=== PATIENT | male | born 2000 | race Caucasian/White ===

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

== ENCOUNTER 2021-03-11 16:00 | Inpatient (IN) | payer MEDICAID, SELFPAY ==
[2021-03-11 16:04] VITALS: BP 168/100; PULSE 114; RESP 18; TEMP 37.1; O2SAT 94; BMI 42.7
--- NOTE | 2021-03-11 17:03 | W.ED.PSYCHS ---
Documented by User: Justo Hebert DO 03/19/21 08:32 HPI - Psych General: Chief Complaint: Psychiatric Symptoms Stated Complaint: SI Time Seen by Provider: 03/11/21 16:23 History of Present Illness: HPI Narrative: 21-year-old male lives at an [facility].. Patient relates having depression and suicidal thoughts he tried to strangle himself using a basketball hoop earlier today. He has been sleeping most of the time eating and isolating himself according to the staff members here with him. He has been admitted for same in the past. MD complaint: suicidal ideation Onset (ago): minute(s) Duration: constant History of same: Yes Relieving factors: none Exacerbating factors: none Associated psychiatric symptoms: none Associated symptoms: Reports no associated symptoms Treatments prior to arrival: none If self harm: admits thoughts of self harm, has plan, has acted on plan and self-inflicted trauma Details of plan: Patient attempted to strangle himself with a basketball hoop Review of Systems Const: Denies: fever(s), chills, body aches, change in appetite, fatigue or malaise ENMT: Denies: throat pain, ear or mastoid pain, nasal discharge or nasal congestion Card: Denies: chest pain, edema, dyspnea on exertion or orthopnea Resp: Denies: dyspnea, productive cough or non-productive cough GI: Denies: abdominal pain, nausea, vomiting, hematemesis, coffee ground emesis, diarrhea, constipation, bloating, hematochezia or melena : Denies: flank pain, dysuria, urinary frequency or urinary urgency Skin/Breast: Denies: rash or pruritus PFSH ED PFSH: Medical History ADHD Anxiety and depression Autism Enuresis Hypothyroid Obesity, Class II, BMI 35-39.9 OCD (obsessive compulsive disorder) Pre-diabetes Seasonal allergic rhinitis Surgical History No history of previous surgery Family History Mother Seizure Social History Smoking and tobacco status: never smoked Second hand smoke exposure: No Smoking risk assessment/counseling performed?: No Alcohol intake: never Desire information about alcohol rehabilitation?: No Counseling given: No Desire information about substance/drug rehabilitation?: No Counseling given: No Adopted: No Caregiver/support person: Yes Lives independently: No Housing: Apartment Marital status: Single Number of children: 0 Highest education level completed: High School Graduate service: No Current occupational status: disabled Pets and animals: No History of recent travel: No Current gender identity: Male Special amor needs: No Physical Exam Const: COMMON NORMALS: no acute distress GENERAL APPEARANCE: cooperative and comfortable ORIENTATION/CONSCIOUSNESS: Yes awake, Yes oriented to person, Yes oriented to place and Yes oriented to time HENMT: COMMON NORMALS: normocephalic, atraumatic and hearing grossly normal bilaterally HEAD & SCALP: normocephalic and atraumatic Neck/C-Spine: COMMON NORMALS: no JVD Resp: COMMON NORMALS: normal respiratory effort, No retractions, No use of accessory muscles and clear to auscultation bilaterally AUSCULTATION: clear to auscultation bilaterally Cardio: COMMON NORMALS: no JVD, regular rate, regular rhythm and No murmurs present (Cardio) RATE: regular rate RHYTHM: regular rhythm GI: COMMON NORMALS: Soft to palpation and No hepatosplenomegaly present AUSCULTATION: Yes normoactive bowel sounds PALPATION: Yes Soft to palpation, No Tenderness to palpation present (GI), No Guarding due to palpation present (GI) and Yes No hepatosplenomegaly present Extremity: COMMON NORMALS: normal to inspection, capillary refill normal, no clubbing, cyanosis or edema, no calf tenderness and no pedal edema Neuro: SENSORIUM/ORIENTATION: Yes oriented to person, Yes oriented to place and Yes oriented to time Skin: COMMON NORMALS: no rashes or lesions noted GENERAL SKIN EXAM: no rashes or lesions noted Course Vital Signs: Vital signs: Vital Signs Temperature 98.3 F 03/16/21 13:40 Pulse Rate 78 03/16/21 13:40 Respiratory Rate 16 03/16/21 13:40 Blood Pressure 132/78 03/16/21 13:40 Pulse Oximetry 99 03/16/21 13:40 MDM - Psych MDM Narrative: Medical decision making narrative: Care turned over Dr. Junior see his note from diagnosis and disposition. Lab Data: Labs: Lab Results 03/11/21 03/11/21 03/11/21 18:28 18:28 18:28 WBC 12.0 10^3/uL 10^3 /uL (4.5-13.0) RBC 5.56 10^6/uL H 10 ^6/uL (4.1-5.3) Hgb 15.4 g/dL g/dL (11.7-16.6) Hct 46.2 % % (42.0-52.0) MCV 83.1 fl fl (80-94) MCH 27.7 pg L pg (28.0-34.0) MCHC 33.3 g/dL g/dL (30.0-36.0) RDW 12.3 % % (12.1-15.1) Plt Count 259 10^3/cmm 10^3 /cmm (130-400) MPV 10.8 fL H fL (7.4-10.4) Neut % (Auto) 71.4 % % Lymph % (Auto) 18.9 % % [place] % (Auto) 6.3 % % Eos % (Auto) 2.2 % % Baso % (Auto) 0.7 % % Neut # (Auto) 8.55 10^3/uL H 10 ^3/uL (1.8-8.0) Lymph # (Auto) 2.3 10^3/uL 10^3/ uL (1.5-6.5) [place] # (Auto) 0.8 10^3/uL 10^3/ uL (0.2-0.9) Eos # (Auto) 0.3 10^3/uL 10^3/ uL (0.0-0.8) Baso # (Auto) 0.1 10^3/uL 10^3/ uL (0.0-0.1) Nucleated RBC % (a uto) 0 % % Nucleated RBCs # 0.0 /100WBC /100W BC Sodium 136 mmol/L mmol/L (136-145) Potassium 4.2 mmol/L mmol/L (3.5-5.1) Chloride 98 mmol/L mmol/L (98-107) Carbon Dioxide 23 mmol/L mmol/L (22-29) Anion Gap 19.2 H (5-19) BUN 13 mg/dL mg/dL (6-20) Creatinine 0.9 mg/dL mg/dL (0.7-1.2) GFR Calculation 107.6 mL/min mL/m in (90-130) Glucose 117 mg/dL H mg/dL (65-115) Calculated Osmolal ity 283 mOsm/kg L mOs m/kg (285-295) Calcium 9.3 mg/dL mg/dL (8.5-10.5) Total Bilirubin 0.2 mg/dL mg/dL (0.15-1.2) AST 19 U/L U/L (0-40) ALT 19 U/L U/L (0-41) Alkaline Phosphata se 75 IU/L IU/L (40-130) Total Protein 8.2 g/dL g/dL (6.6-8.7) Albumin 4.8 g/dL g/dL (3.5-5.2) Globulin 3.4 g/dL g/dL (1.3-4.6) TSH 7.06 uIU/mL H uIU /mL (0.27-4.20) Salicylates < 0.3 mg/dL L mg/ dL (3-10) Urine Opiates Scre en Acetaminophen < 5.0 ug/mL L ug/ mL (10-30) Ur Barbiturates Sc reen Ur Phencyclidine S crn Ur Amphetamines Sc reen U Benzodiazepines Scrn Urine Cocaine Scre en U Marijuana (THC) Screen 03/11/21 18:38 WBC RBC Hgb Hct MCV MCH MCHC RDW Plt Count MPV Neut % (Auto) Lymph % (Auto) [place] % (Auto) Eos % (Auto) Baso % (Auto) Neut # (Auto) Lymph # (Auto) [place] # (Auto) Eos # (Auto) Baso # (Auto) Nucleated RBC % (a uto) Nucleated RBCs # Sodium Potassium Chloride Carbon Dioxide Anion Gap BUN Creatinine GFR Calculation Glucose Calculated Osmolal ity Calcium Total Bilirubin AST ALT Alkaline Phosphata se Total Protein Albumin Globulin TSH Salicylates Urine Opiates Scre en Negative ng/mL ng /mL (Negative) Acetaminophen Ur Barbiturates Sc reen Negative ng/mL ng /mL (Negative) Ur Phencyclidine S crn Negative ng/mL ng /mL (Negative) Ur Amphetamines Sc reen Negative ng/mL ng /mL (Negative) U Benzodiazepines Scrn Negative ng/mL ng /mL (Negative) Urine Cocaine Scre en Negative ng/mL ng /mL (Negative) U Marijuana (THC) Screen Negative ng/mL ng /mL (Negative) Discharge Plan Discharge Patient Disposition: Admitted As Inpatient Admit Provider: Fransico Pennington Clinical Impression: Suicidal ideation Condition: Stable Discharge Diet: Regular Discharge Activity: Resume usual activity Coding Level of Care Code ED 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 [employer] Fwd Exam Comprehensive Documented by User: Leatha Junior MD 03/11/21 19:17 HPI - Psych General: Chief Complaint: Psychiatric Symptoms Stated Complaint: SI Time Seen by Provider: 03/11/21 16:23 PFSH ED PFSH: Medical History ADHD Anxiety and depression Autism Enuresis Hypothyroid Obesity, Class II, BMI 35-39.9 OCD (obsessive compulsive disorder) Pre-diabetes Seasonal allergic rhinitis Surgical History No history of previous surgery Family History Mother Seizure Social History Smoking and tobacco status: never smoked Second hand smoke exposure: No Smoking risk assessment/counseling performed?: No Alcohol intake: never Desire information about alcohol rehabilitation?: No Counseling given: No Desire information about substance/drug rehabilitation?: No Counseling given: No Adopted: No Caregiver/support person: Yes Lives independently: No Housing: Apartment Marital status: Single Number of children: 0 Highest education level completed: High School Graduate service: No Current occupational status: disabled Pets and animals: No History of recent travel: No Current gender identity: Male Special amor needs: No Course Vital Signs: Vital signs: Vital Signs Temperature 98.3 F 03/16/21 13:40 Pulse Rate 78 03/16/21 13:40 Respiratory Rate 16 03/16/21 13:40 Blood Pressure 132/78 03/16/21 13:40 Pulse Oximetry 99 03/16/21 13:40 MDM - Psych MDM Narrative: Medical decision making narrative: Patient presents after a suicide attempt I took over from Dr. Hinton following labs he looked normal he is medically cleared I spoke to the psychiatrist and will admit the psychiatric unit. Lab Data: Labs: Lab Results 03/11/21 03/11/21 03/11/21 18:28 18:28 18:28 WBC 12.0 10^3/uL 10^3 /uL (4.5-13.0) RBC 5.56 10^6/uL H 10 ^6/uL (4.1-5.3) Hgb 15.4 g/dL g/dL (11.7-16.6) Hct 46.2 % % (42.0-52.0) MCV 83.1 fl fl (80-94) MCH 27.7 pg L pg (28.0-34.0) MCHC 33.3 g/dL g/dL (30.0-36.0) RDW 12.3 % % (12.1-15.1) Plt Count 259 10^3/cmm 10^3 /cmm (130-400) MPV 10.8 fL H fL (7.4-10.4) Neut % (Auto) 71.4 % % Lymph % (Auto) 18.9 % % [place] % (Auto) 6.3 % % Eos % (Auto) 2.2 % % Baso % (Auto) 0.7 % % Neut # (Auto) 8.55 10^3/uL H 10 ^3/uL (1.8-8.0) Lymph # (Auto) 2.3 10^3/uL 10^3/ uL (1.5-6.5) [place] # (Auto) 0.8 10^3/uL 10^3/ uL (0.2-0.9) Eos # (Auto) 0.3 10^3/uL 10^3/ uL (0.0-0.8) Baso # (Auto) 0.1 10^3/uL 10^3/ uL (0.0-0.1) Nucleated RBC % (a uto) 0 % % Nucleated RBCs # 0.0 /100WBC /100W BC Sodium 136 mmol/L mmol/L (136-145) Potassium 4.2 mmol/L mmol/L (3.5-5.1) Chloride 98 mmol/L mmol/L (98-107) Carbon Dioxide 23 mmol/L mmol/L (22-29) Anion Gap 19.2 H (5-19) BUN 13 mg/dL mg/dL (6-20) Creatinine 0.9 mg/dL mg/dL (0.7-1.2) GFR Calculation 107.6 mL/min mL/m in (90-130) Glucose 117 mg/dL H mg/dL (65-115) Calculated Osmolal ity 283 mOsm/kg L mOs m/kg (285-295) Calcium 9.3 mg/dL mg/dL (8.5-10.5) Total Bilirubin 0.2 mg/dL mg/dL (0.15-1.2) AST 19 U/L U/L (0-40) ALT 19 U/L U/L (0-41) Alkaline Phosphata se 75 IU/L IU/L (40-130) Total Protein 8.2 g/dL g/dL (6.6-8.7) Albumin 4.8 g/dL g/dL (3.5-5.2) Globulin 3.4 g/dL g/dL (1.3-4.6) TSH 7.06 uIU/mL H uIU /mL (0.27-4.20) Salicylates < 0.3 mg/dL L mg/ dL (3-10) Urine Opiates Scre en Acetaminophen < 5.0 ug/mL L ug/ mL (10-30) Ur Barbiturates Sc reen Ur Phencyclidine S crn Ur Amphetamines Sc reen U Benzodiazepines Scrn Urine Cocaine Scre en U Marijuana (THC) Screen 03/11/21 18:38 WBC RBC Hgb Hct MCV MCH MCHC RDW Plt Count MPV Neut % (Auto) Lymph % (Auto) [place] % (Auto) Eos % (Auto) Baso % (Auto) Neut # (Auto) Lymph # (Auto) [place] # (Auto) Eos # (Auto) Baso # (Auto) Nucleated RBC % (a uto) Nucleated RBCs # Sodium Potassium Chloride Carbon Dioxide Anion Gap BUN Creatinine GFR Calculation Glucose Calculated Osmolal ity Calcium Total Bilirubin AST ALT Alkaline Phosphata se Total Protein Albumin Globulin TSH Salicylates Urine Opiates Scre en Negative ng/mL ng /mL (Negative) Acetaminophen Ur Barbiturates Sc reen Negative ng/mL ng /mL (Negative) Ur Phencyclidine S crn Negative ng/mL ng /mL (Negative) Ur Amphetamines Sc reen Negative ng/mL ng /mL (Negative) U Benzodiazepines Scrn Negative ng/mL ng /mL (Negative) Urine Cocaine Scre en Negative ng/mL ng /mL (Negative) U Marijuana (THC) Screen Negative ng/mL ng /mL (Negative) Discharge Plan Discharge Patient Disposition: Admitted As Inpatient Admit Provider: Fransico Pennington Clinical Impression: Suicidal ideation Condition: Stable Discharge Diet: Regular Discharge Activity: Resume usual activity Coding Level of Care Code ED 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
[2021-03-11 18:34] LABS: Basophils # 0.1 10^3/uL (0.0-0.1); Basophils % 0.7 %; Eosinophils # 0.3 10^3/uL (0.0-0.8); Eosinophils % 2.2 %; Hematocrit 46.2 % (42.0-52.0); Hemoglobin 15.4 g/dL (11.7-16.6); Lymphocytes # 2.3 10^3/uL (1.5-6.5); Lymphocytes % 18.9 %; Mean Corpuscular HGB Conc 33.3 g/dL (30.0-36.0); Mean Corpuscular Hemoglobin 27.7 pg (28.0-34.0); Mean Corpuscular Volume 83.1 fl (80-94); Mean Platelet Volume 10.8 fL (7.4-10.4); Monocytes # 0.8 10^3/uL (0.2-0.9); Monocytes % 6.3 %; Neutrophils # 8.55 10^3/uL (1.8-8.0); Neutrophils % 71.4 %; Nucleated Red Blood Cells % 0 %; Platelet Count 259 10^3/cmm (130-400); Red Blood Count 5.56 10^6/uL (4.1-5.3); Red Cell Distribution Width 12.3 % (12.1-15.1)
[2021-03-11 18:53] LABS: Alanine Aminotransferase 19 U/L (0-41); Albumin Level 4.8 g/dL (3.5-5.2); Alkaline Phosphatase 75 IU/L (40-130); Anion Gap 19.2 (5-19); Aspartate Amino Transferase 19 U/L (0-40); Blood Urea Nitrogen 13 mg/dL (6-20); Calcium 9.3 mg/dL (8.5-10.5); Carbon Dioxide 23 mmol/L (22-29); Chloride 98 mmol/L (98-107); Globulin 3.4 g/dL (1.3-4.6); Glomerular Filtration Rate 107.6 mL/min (90-130); Glucose 117 mg/dL (65-115); Osmolality Calculated 283 mOsm/kg (285-295); Potassium 4.2 mmol/L (3.5-5.1); Sodium 136 mmol/L (136-145); Total Bilirubin 0.2 mg/dL (0.15-1.2); Total Protein 8.2 g/dL (6.6-8.7)
[2021-03-11 18:57] LABS: Acetaminophen < 5.0 ug/mL (10-30); Salicylate < 0.3 mg/dL (3-10)
[2021-03-11] MEDS: risperiDONE 2 mg Tablet 6 MG PO (19:59)
[2021-03-11] MEDS: PARoxetine 20 mg Tablet PO (19:59)
[2021-03-11] MEDS: polyethylene glycol 3350 Pkt 17 gm PO (20:06)
[2021-03-11 21:04] VITALS: BP 149/74; PULSE 101; RESP 18; TEMP 37.1; O2SAT 96
[2021-03-11 21:14] LABS: Amphetamines Screen Urine Negative (Negative); Barbiturates Screen Urine Negative (Negative); Benzodiazepines Screen Urine Negative (Negative); Cocaine Screen Urine Negative (Negative); Opiate Screen Urine Negative (Negative); PCP Screen Urine Negative (Negative); THC Screen Urine Negative (Negative)
[2021-03-11 21:16] VITALS: BP 149/74; PULSE 78; RESP 18; TEMP 37.1; O2SAT 96
[2021-03-11 21:21] VITALS: BP 146/80; PULSE 90; RESP 18; O2SAT 98
[2021-03-11 22:00] VITALS: BP 146/80; PULSE 90; RESP 18; TEMP 37.1
[2021-03-12 06:00] VITALS: BP 140/83; PULSE 76; RESP 18; O2SAT 96
--- NOTE | 2021-03-12 06:30 | P.NPUHP_ITS ---
Providers/Chief Complaint Admitting Physician: Fransico Pennington MD Primary Care Provider: JA Ferro Chief Complaint: SI HPI NPU History of Present Illness Nick Sanders is a 21 year old male who presented to the emergency room after a suicide attempt with the following report: HPI - Psych General: Chief Complaint: Psychiatric Symptoms Stated Complaint: SI Time Seen by Provider: 03/11/21 16:23 History of Present Illness: HPI Narrative: 21-year-old male lives at an [facility].. Patient relates having depression and suicidal thoughts he tried to strangle himself using a basketball hoop earlier today. He has been sleeping most of the time eating and isolating himself according to the staff members here with him. He has been admitted for same in the past. complaint: suicidal ideation Onset (ago): minute(s) Duration: constant History of same: Yes Relieving factors: none Exacerbating factors: none Associated psychiatric symptoms: none Associated symptoms: Reports no associated symptoms Treatments prior to arrival: none If self harm: admits thoughts of self harm, has plan, has acted on plan and self-inflicted trauma Details of plan: Patient attempted to strangle himself with a basketball hoop Prescriptions: No Action paroxetine HCl 40 mg tablet 40 mg PO BID RF: 0 naltrexone 50 mg tablet 50 mg PO DAILY RF: 0 melatonin [Melatin] 3 mg tablet 3 mg PO DAILY RF: 0 ibuprofen 600 mg tablet 600 mg PO Q6H PRN (Reason: pain) Qty: 90 RF: 5 acetaminophen 325 mg tablet 325 mg PO Q6H PRN (Reason: fever over 100 or pain) Qty: 30 RF: 5 cetirizine 10 mg tablet 10 mg PO DAILY Qty: 30 RF: 5 polyethylene glycol 3350 [Miralax] 17 gram/dose powder 17 g PO DAILY Qty: 510 RF: 2 risperidone 3 mg tablet 3 mg PO .AM RF: 0 risperidone 3 mg tablet 3 mg PO BID RF: 0 levothyroxine 25 mcg tablet 25 mcg PO DAILY Qty: 30 RF: 5 guanfacine 4 mg tablet extended release 24 hr 4 mg PO DAILY Qty: 30 RF: 2 atomoxetine 80 mg capsule 80 mg PO DAILY Qty: 30 RF: 2 desmopressin 0.2 mg tablet 0.2 mg PO .at bedtime Qty: 30 RF: 2 PFSH ED PFSH: Medical History ADHD Anxiety and depression Autism Enuresis Hypothyroid Obesity, Class II, BMI 35-39.9 OCD (obsessive compulsive disorder) Pre-diabetes Seasonal allergic rhinitis He was admitted to the neuropsychiatry unit for definitive treatment of these issues. He says that he has been down for the last few months. He said he went and was with family at [facility] and did well. He saw his psychiatrist about 2 or 3 weeks ago and was doing relatively well. He decreased his risperidone from 1.5 in the morning and 6 mg at bedtime to only 6 mg at bedtime. That because he was tired during the day. It seems that he has been worse since that time. He does feel a little bit less tired during the day but he still has poor motivation and energy and just lays on the bed or couch all day long. He tried to hang himself with a basketball hoop in the last couple of days. He also has been having thoughts of running into traffic on a walk that he had yesterday. He says that he has been on these medications for some time. His guardian says that he has been stable on these medications for about 1.5 years and has been doing well. She is hoping that this is just a temporary thing. He spent some time with family at [facility] but will be alone at [place] and she thinks that might be causing him to be more down. Did agree with the lithium although she had some concerns. She also agreed with the increase in risperidone to 7.5 mg daily. He has been in state custody since he was 6 years old. His mother could not handle her 5 children on her own. His father left when he was 2-year-old. He has had the same guardian for the last 6 years. His mother is in [place] now. She a tod who is in trouble with the law in [place]. He says that he was diagnosed as prediabetes a few years ago. He said that his weight has been stable since then but he has gotten taller so he is less obese. He says that he does have some obsessive- compulsive symptoms. Sometimes if he is something out of place he has to fix it. He does count things sometimes. He does not have rituals that he has to go through. Meds NPU Home Medications Medication Instructions Recorded Confirmed Last Taken Type naltrexone 50 mg tablet 50 mg PO DAILY 12/13/19 03/11/21 Unknown History paroxetine HCl 40 mg tablet 40 mg PO BID tab 12/13/19 03/11/21 Unknown History atomoxetine 80 mg capsule 80 mg PO DAILY #30 cap 01/10/20 03/11/21 Unknown Rx guanfacine 4 mg tablet,extended 4 mg PO DAILY #30 tab 01/10/20 03/11/21 Unknown Rx release 24 hr risperidone 3 mg tablet 6 mg PO BEDTIME tab 06/11/20 03/11/21 Unknown History levothyroxine 25 mcg tablet 25 mcg PO DAILY #30 tab 06/15/20 03/11/21 Unknown Rx acetaminophen 325 mg tablet 325 mg PO Q6H PRN #30 tab 08/12/20 03/11/21 Unknown Rx cetirizine 10 mg tablet 10 mg PO DAILY #30 tab 08/12/20 03/11/21 Unknown Rx ibuprofen 600 mg tablet 600 mg PO Q6H PRN #90 tab 08/12/20 03/11/21 Unknown Rx melatonin 3 mg tablet 3 mg PO DAILY 08/12/20 03/11/21 Unknown History polyethylene glycol 3350 17 17 g PO DAILY #510 g 10/17/20 03/11/21 Unknown Rx gram/dose oral powder desmopressin 0.2 mg tablet 0.2 mg PO .at bedtime #30 tab 12/09/20 03/11/21 Unknown Rx Allergies Allergy/AdvReac Type Severity Reaction Status Date / Time No Known Allergies Allergy Unverified 12/13/19 11:01 PFS NPU PFSH: Medical History ADHD Anxiety and depression Autism Enuresis Hypothyroid Obesity, Class II, BMI 35-39.9 OCD (obsessive compulsive disorder) Pre-diabetes Seasonal allergic rhinitis Surgical History No history of previous surgery Family History Mother Seizure Social History Smoking and tobacco status: never smoked Second hand smoke exposure: No Smoking risk assessment/counseling performed?: No Alcohol intake: never Desire information about alcohol rehabilitation?: No Counseling given: No Desire information about substance/drug rehabilitation?: No Counseling given: No Adopted: No Caregiver/support person: Yes Lives independently: No Housing: Apartment Marital status: Single Number of children: 0 Highest education level completed: High School Graduate service: No Current occupational status: disabled Pets and animals: No History of recent travel: No Current gender identity: Male Special amor needs: No Mental Status Exam MSE Comments: This is an obese male of about the stated age in no acute distress. He is dressed in hospital scrubs and is only fairly groomed. His hair is unkempt. psychomotor activity normal. Speech is at a regular rate and rhythm, normal volume, good articulation, not pressured. Alert, oriented X3 Attention and concentration appear to be normal. Memory is intact Mood is depressed. Affect is is very mildly dysphoric. Thought process is logical and goal-directed. Thought content: Denies auditory and visual hallucinations. No delusions or pa ranoia are noted. No current suicidal ideation, and no homicidal ideation. Fund of knowledge is limited. Insight and judgment appear to be fairly good. Impulse control is impaired as indicated by attempting to hang himself yesterday. Vitals/I&O/Wt Last Vital Signs Temp 98.7 F 03/11/21 22:00 Pulse 76 03/12/21 06:00 Resp 18 03/12/21 06:00 BP 140/83 03/12/21 06:00 Pulse Ox 96 03/12/21 06:00 Weight last 48 hrs Weight 142.882 kg Data NPU : 03/11/21 18:28 03/11/21 18:28 A&P Assessment and plan (1) Autism: Status: Chronic (2) OCD (obsessive compulsive disorder): Status: Chronic Qualifiers: Obsessive-compulsive disorder type: mixed obsessional thoughts and acts Qualified Code(s): F42.2 - Mixed obsessional thoughts and acts (3) Hypothyroid: Status: Chronic Qualifiers: Hypothyroidism type: unspecified Qualified Code(s): E03.9 - Hypothyroidism, unspecified (4) Pre-diabetes: Status: Chronic (5) Seasonal allergic rhinitis: Status: Chronic Qualifiers: Allergic rhinitis trigger: unspecified Qualified Code(s): J30.2 - Other seasonal allergic rhinitis (6) ADHD: Status: Chronic Qualifiers: Attention deficit-hyperactivity disorder type: unspecified Qualified Code(s): F90.9 - Attention-deficit hyperactivity disorder, unspecified type (7) Enuresis: Status: Chronic (8) Slow transit constipation: Status: Chronic (9) Obesity, Class II, BMI 35-39.9: Status: Chronic (10) Suicidal ideation: Status: Acute (11) Depression: Status: Acute Qualifiers: Depression Type: major depressive disorder Major depression recurrence: recurrent Active/Remission status: currently active Major depression episode severity: severe Psychotic features: without psychotic features Qualified Code(s): F33.2 - Major depressive disorder, recurrent severe without psychotic features Additional A&P Information Year old male who has relatively frequent suicidal ideations and hospitalizations. He says that he has been more depressed for the last 3 months and has had recent suicidal ideations and an attempt to hang himself with a basketball hoop Plan: 1. Continue current medication. Except increase risperidone to 7.5 mg at bedtime and add lithium carbonate. 2. Continue every 15 minute checks for safety. 3. Encourage individual, group and milieu therapies. 4. Encourage sober living treatment after discharge at the highest level of care to which he is willing to commit. 5. We will monitor for safety for himself in the community prior to discharge. Involuntary Hold Information 96 Hour Hold: 96 Hour Involuntary Admission: No Attestations NPU Medical Necessity Statement*: Inpatient hospitalization is medically necessary and the clinically appropriate intervention at this time. We will initiate medications and make changes as indicated. He will be in the hospital for over 2 midnights. Likely length of stay 4-6 days Coding Level of Care Code Acute Dietary Clerk for [facility] Fwd Diagnoses Autism F84.0 OCD (obsessive compulsive disorder) F42.2 Obsessive-compulsive disorder type: mixed obsessional thoughts and acts Hypothyroid E03.9 Hypothyroidism type: unspecified Pre-diabetes R73.03 Seasonal allergic rhinitis J30.2 Allergic rhinitis trigger: unspecified ADHD F90.9 Attention deficit-hyperactivity disorder type: unspecified Enuresis R32 Slow transit constipation K59.01 Obesity, Class II, BMI 35-39.9 E66.9 Suicidal ideation R45.851 Depression F33.2 Depression Type: major depressive disorder Major depression recurrence: recurrent Active/Remission status: currently active Major depression episode severity: severe Psychotic features: without psychotic features
[2021-03-12] MEDS: atomoxetine 40 mg Capsule 80 MG PO (09:28)
[2021-03-12] MEDS: cetirizine 10 mg Tablet PO (09:28)
[2021-03-12] MEDS: guanfacine 1 mg Tablet 2 MG PO ×2 (09:28→18:15)
[2021-03-12] MEDS: levothyroxine 25 mcg Tablet PO (09:29)
[2021-03-12] MEDS: naltrexone hcl 50 mg Tablet PO (09:29)
[2021-03-12] MEDS: PARoxetine 20 mg Tablet 40 MG PO ×2 (09:29→18:15)
[2021-03-12] MEDS: polyethylene glycol 3350 Pkt 17 gm PO (09:30)
[2021-03-12] MEDS: hyDROXYzine 25 mg Capsule 50 MG PO ×2 (12:44→20:25)
--- NOTE | 2021-03-12 12:57 | NPU.GN ---
[facility] Group Topic:Juan Manuel Activities General Mood of Group: Jesus did attend and participate in group today. His hygiene was poor and he was social with others in group.
[2021-03-12 14:00] VITALS: BP 124/83; PULSE 92; RESP 20; TEMP 36.7; O2SAT 96
[2021-03-12 14:53] LABS: Thyroid Stimulating Hormone 7.06 uIU/mL (0.27-4.20)
[2021-03-12] MEDS: acetaminophen 325 mg Tablet PO (16:55)
[2021-03-12] MEDS: trazodone 50 mg Tablet PO (20:25)
--- NOTE | 2021-03-12 20:25 | PC.NURSE ---
Vistaril 50 mg PO administered for anxiety and Trazadone 50 mg PO administered for sleep aide.
[2021-03-12] MEDS: risperiDONE 2 mg Tablet 6 MG PO (20:26)
[2021-03-12 22:00] VITALS: BP 126/83; PULSE 87; RESP 18; TEMP 36.9; O2SAT 98
[2021-03-13 06:00] VITALS: RESP 17
--- NOTE | 2021-03-13 08:01 | W.PM.NPUPNS ---
Subjective NPU Subjective: Interval history: Found in bed at 7:45 AM. He said that he was very tired. His orders were not put in the last night for the increased Risperdal or lithium. They will be started today. His guardian did give approval for those medications. He continues to feel depressed and has suicidal thoughts periodically. Mental Status Exam MSE Comments: This is an obese male of about the stated age in no acute distress. He is dressed in hospital scrubs and is only fairly groomed. His hair is unkempt. He is in bed and barely awake psychomotor activity but probably normal for trying to sleep. Speech is at a regular rate and rhythm, normal volume, good articulation, not pressured. Alert, oriented X3 Attention and concentration appear to be normal. Memory is intact Mood is depressed. Affect is is very dysphoric. Thought process is logical and goal-directed. Thought content: Denies auditory and visual hallucinations. No delusions or paranoia are noted. No current suicidal ideation, and no homicidal ideation. Fund of knowledge is limited. Insight and judgment appear to be fairly good. Impulse control is impaired as indicated by attempting to hang himself yesterday. Cognition: Patient Appearance: Disheveled/Poor Hygiene Level of Consciousness: Awake and Alert Patient Cognition Impaired: No Ability to Follow Directions: Good Patient Orientation (long list): Person and Name Comprehension Ability: Mild Impairment Hallucination Type: None Delusion Description: Not Present Thought Process: Appropriate Affect: Affect Description: Calm Behavior: Patient Behavior: Cooperative Speech Pattern: Clear Vitals/I&O/Wt Last Vital Signs Temp 98.4 F 03/12/21 22:00 Pulse 87 03/12/21 22:00 Resp 17 03/13/21 06:00 BP 126/83 03/12/21 22:00 Pulse Ox 98 03/12/21 22:00 Weight last 48 hrs Weight 142.882 kg Data NPU : 03/11/21 18:28 03/11/21 18:28 A&P Assessment and plan (1) Autism: Status: Chronic (2) OCD (obsessive compulsive disorder): Status: Chronic Qualifiers: Obsessive-compulsive disorder type: mixed obsessional thoughts and acts Qualified Code(s): F42.2 - Mixed obsessional thoughts and acts (3) Hypothyroid: Status: Chronic Qualifiers: Hypothyroidism type: unspecified Qualified Code(s): E03.9 - Hypothyroidism, unspecified (4) Pre-diabetes: Status: Chronic (5) Seasonal allergic rhinitis: Status: Chronic Qualifiers: Allergic rhinitis trigger: unspecified Qualified Code(s): J30.2 - Other seasonal allergic rhinitis (6) ADHD: Status: Chronic Qualifiers: Attention deficit-hyperactivity disorder type: unspecified Qualified Code(s): F90.9 - Attention-deficit hyperactivity disorder, unspecified type (7) Enuresis: Status: Chronic (8) Slow transit constipation: Status: Chronic (9) Obesity, Class II, BMI 35-39.9: Status: Chronic (10) Suicidal ideation: Status: Acute (11) Depression: Status: Acute Qualifiers: Depression Type: major depressive disorder Major depression recurrence: recurrent Active/Remission status: currently active Major depression episode severity: severe Psychotic features: without psychotic features Qualified Code(s): F33.2 - Major depressive disorder, recurrent severe without psychotic features Additional A&P Information Year old male who has relatively frequent suicidal ideations and hospitalizations. He says that he has been more depressed for the last 3 months and has had recent suicidal ideations and an attempt to hang himself with a basketball hoop Plan: 1. Continue current medication. Except increase risperidone to 7.5 mg at bedtime and add lithium carbonate BID today. 2. Continue every 15 minute checks for safety. 3. Encourage individual, group and milieu therapies. 4. Encourage sober living treatment after discharge at the highest level of care to which he is willing to commit. 5. We will monitor for safety for himself in the community prior to discharge. Involuntary Hold Information 96 Hour Hold: 96 Hour Involuntary Admission: No Attestations U Medical Necessity Statement*: Inpatient hospitalization is medically necessary and the clinically appropriate intervention at this time. We will initiate medications and make changes as indicated. 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 Diagnoses Autism F84.0 OCD (obsessive compulsive disorder) F42.2 Obsessive-compulsive disorder type: mixed obsessional thoughts and acts Hypothyroid E03.9 Hypothyroidism type: unspecified Pre-diabetes R73.03 Seasonal allergic rhinitis J30.2 Allergic rhinitis trigger: unspecified ADHD F90.9 Attention deficit-hyperactivity disorder type: unspecified Enuresis R32 Slow transit constipation K59.01 Obesity, Class II, BMI 35-39.9 E66.9 Suicidal ideation R45.851 Depression F33.2 Depression Type: major depressive disorder Major depression recurrence: recurrent Active/Remission status: currently active Major depression episode severity: severe Psychotic features: without psychotic features
[2021-03-13] MEDS: atomoxetine 40 mg Capsule 80 MG PO (09:20)
[2021-03-13] MEDS: PARoxetine 20 mg Tablet 40 MG PO ×2 (09:21→17:49)
[2021-03-13] MEDS: levothyroxine 25 mcg Tablet PO (09:21)
[2021-03-13] MEDS: naltrexone hcl 50 mg Tablet PO (09:21)
[2021-03-13] MEDS: guanfacine 1 mg Tablet 2 MG PO ×2 (09:21→17:50)
[2021-03-13] MEDS: cetirizine 10 mg Tablet PO (09:21)
[2021-03-13] MEDS: lithium carbonate 300 mg Capsule PO ×2 (09:21→17:49)
[2021-03-13] MEDS: polyethylene glycol 3350 Pkt 17 gm PO (09:21)
[2021-03-13 14:00] VITALS: BP 127/92; PULSE 103; RESP 18; TEMP 36.5; O2SAT 98
[2021-03-13 19:43] VITALS: BP 122/82; PULSE 96; RESP 15; O2SAT 98
[2021-03-13] MEDS: trazodone 50 mg Tablet PO (20:11)
[2021-03-13] MEDS: hyDROXYzine 25 mg Capsule 50 MG PO (20:11)
[2021-03-13] MEDS: risperiDONE 1 mg Tablet PO (20:12)
[2021-03-13] MEDS: risperiDONE 2 mg Tablet 6 MG PO (20:12)
[2021-03-13] MEDS: risperiDONE 0.25 mg Tablet 0.5 MG PO (20:12)
--- NOTE | 2021-03-13 20:12 | PC.NURSE ---
Vistaril administered for anxiety and Trazadone administered for sleep aide.
[2021-03-14 06:00] VITALS: BP 118/66; PULSE 74; RESP 17; O2SAT 98
[2021-03-14] MEDS: atomoxetine 40 mg Capsule 80 MG PO (08:35)
[2021-03-14] MEDS: polyethylene glycol 3350 Pkt 17 gm PO (08:35)
[2021-03-14] MEDS: PARoxetine 20 mg Tablet 40 MG PO ×2 (08:35→17:32)
[2021-03-14] MEDS: naltrexone hcl 50 mg Tablet PO (08:35)
[2021-03-14] MEDS: levothyroxine 50 mcg Tablet PO (08:36)
[2021-03-14] MEDS: guanfacine 1 mg Tablet 2 MG PO ×2 (08:36→17:32)
[2021-03-14] MEDS: lithium carbonate 300 mg Capsule PO ×3 (08:36→20:12)
[2021-03-14] MEDS: cetirizine 10 mg Tablet PO (08:36)
--- NOTE | 2021-03-14 09:48 | W.PM.NPUPNS ---
Subjective NPU Subjective: Interval history: He says he is doing some better. He was up watching television at 9:30 AM. He slept all morning yesterday. He feels more like being up today. He says nothing will ever make him completely better. Today will be his first day on lithium 900 mg. He has not had side effects from the lithium thus far. his risperidone was increased to 7.5 mg last night without any difficulty.. His TSH was very elevated. We will increase his Synthroid to 50 mcg. Mental Status Exam MSE Comments: This is an obese male of about the stated age in no acute distress. He is dressed in hospital scrubs and is only fairly groomed. His hair is unkempt. He was up and watching television in the day room. psychomotor activity is mildly decreased Speech is at a regular rate and rhythm, normal volume, good articulation, not pressured. Alert, oriented X2 Attention and concentration appear to be normal. Memory is intact Mood is depressed but better. Affect is is mildly dysphoric. Thought process is logical and goal-directed. Thought content: Denies auditory and visual hallucinations. No delusions or paranoia are noted. No current suicidal ideation, and no homicidal ideation. Fund of knowledge is limited. Insight and judgment appear to be fairly good. Impulse control is impaired as indicated by attempting to hang himself yesterday. Cognition: Patient Appearance: Disheveled/Poor Hygiene Level of Consciousness: Awake and Alert Patient Cognition Impaired: No Ability to Follow Directions: Good Patient Orientation (long list): Person and Name Comprehension Ability: Mild Impairment Hallucination Type: None Delusion Description: Not Present Thought Process: Appropriate Affect: Affect Description: Appropriate and Calm Behavior: Patient Behavior: Appropriate and Cooperative Speech Pattern: Appropriate and Clear Vitals/I&O/Wt Last Vital Signs Temp 97.7 F 03/13/21 14:00 Pulse 74 03/14/21 06:00 Resp 17 03/14/21 06:00 BP 118/66 03/14/21 06:00 Pulse Ox 98 03/14/21 06:00 Data NPU : 03/11/21 18:28 03/11/21 18:28 A&P Assessment and plan (1) Autism: Status: Chronic (2) OCD (obsessive compulsive disorder): Status: Chronic Qualifiers: Obsessive-compulsive disorder type: mixed obsessional thoughts and acts Qualified Code(s): F42.2 - Mixed obsessional thoughts and acts (3) Hypothyroid: Status: Chronic Qualifiers: Hypothyroidism type: unspecified Qualified Code(s): E03.9 - Hypothyroidism, unspecified (4) Pre-diabetes: Status: Chronic (5) Seasonal allergic rhinitis: Status: Chronic Qualifiers: Allergic rhinitis trigger: unspecified Qualified Code(s): J30.2 - Other seasonal allergic rhinitis (6) ADHD: Status: Chronic Qualifiers: Attention deficit-hyperactivity disorder type: unspecified Qualified Code(s): F90.9 - Attention-deficit hyperactivity disorder, unspecified type (7) Enuresis: Status: Chronic (8) Slow transit constipation: Status: Chronic (9) Obesity, Class II, BMI 35-39.9: Status: Chronic (10) Suicidal ideation: Status: Acute (11) Depression: Status: Acute Qualifiers: Depression Type: major depressive disorder Major depression recurrence: recurrent Active/Remission status: currently active Major depression episode severity: severe Psychotic features: without psychotic features Qualified Code(s): F33.2 - Major depressive disorder, recurrent severe without psychotic features Additional A&P Information Year old male who has relatively frequent suicidal ideations and hospitalizations. He says that he has been more depressed for the last 3 months and has had recent suicidal ideations and an attempt to hang himself with a basketball hoop Plan: 1. Continue home medication. Except risperidone to 7.5 mg at bedtime and increase lithium carbonate to 300 mg 3 times a day. 3. Encourage individual, group and milieu therapies. 4. Encourage sober living treatment after discharge at the highest level of care to which he is willing to commit. 5. We will monitor for safety for himself in the community prior to discharge. Involuntary Hold Information 96 Hour Hold: 96 Hour Involuntary Admission: No Attestations NPU Medical Necessity Statement*: Inpatient hospitalization is medically necessary and the clinically appropriate intervention at this time. We will initiate medications and make changes as indicated. 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 Diagnoses Autism F84.0 OCD (obsessive compulsive disorder) F42.2 Obsessive-compulsive disorder type: mixed obsessional thoughts and acts Hypothyroid E03.9 Hypothyroidism type: unspecified Pre-diabetes R73.03 Seasonal allergic rhinitis J30.2 Allergic rhinitis trigger: unspecified ADHD F90.9 Attention deficit-hyperactivity disorder type: unspecified Enuresis R32 Slow transit constipation K59.01 Obesity, Class II, BMI 35-39.9 E66.9 Suicidal ideation R45.851 Depression F33.2 Depression Type: major depressive disorder Major depression recurrence: recurrent Active/Remission status: currently active Major depression episode severity: severe Psychotic features: without psychotic features
[2021-03-14] MEDS: acetaminophen 325 mg Tablet 650 MG PO (10:27)
[2021-03-14 14:00] VITALS: BP 109/74; PULSE 86; RESP 16; O2SAT 94
[2021-03-14] MEDS: risperiDONE 1 mg Tablet PO (20:11)
[2021-03-14] MEDS: risperiDONE 2 mg Tablet 6 MG PO (20:11)
[2021-03-14] MEDS: risperiDONE 0.25 mg Tablet 0.5 MG PO (20:12)
[2021-03-14 20:24] VITALS: BP 127/84; PULSE 102; RESP 16; O2SAT 98
[2021-03-15 06:00] VITALS: BP 114/82; PULSE 82; RESP 15; TEMP 36.7; O2SAT 98; BMI 42.7
--- NOTE | 2021-03-15 08:37 | P.NPUPN_ITS ---
Subjective NPU Subjective: Interval history: He said that he was up most of the time yesterday but was in bed some. He said that took him some time to fall asleep last night. He was encouraged to stay up more during the day and that would help him sleep better at night. He says that he would like to go home because he misses his friends. He feels like he is about 40% better back to where he would like to be. He denies any suicidal ideation for the last 2 days. He denies any side effects from the lithium and says it might be helping some. Mental Status Exam MSE Comments: This is an obese male of about the stated age in no acute distress. He is dressed in hospital scrubs and is only fairly groomed. His hair is unkempt. He was getting ready to go back to sleep after breakfast.. psychomotor activity is normal Speech is at a regular rate and rhythm, normal volume, good articulation, not pressured. Alert, oriented X2 Attention and concentration appear to be normal. Memory is intact Mood is depressed but better. Affect is is mildly dysphoric. Thought process is logical and goal-directed. Thought content: Denies auditory and visual hallucinations. No delusions or paranoia are noted. No current suicidal ideation, and no homicidal ideation. Fund of knowledge is limited. Insight and judgment appear to be fairly good. Impulse control is impaired as indicated by attempting to hang himself only. Cognition: Patient Appearance: Disheveled/Poor Hygiene Level of Consciousness: Awake and Alert Patient Cognition Impaired: No Ability to Follow Directions: Good Patient Orientation (long list): Person and Name Comprehension Ability: Mild Impairment Hallucination Type: None Delusion Description: Not Present Thought Process: Appropriate Affect: Affect Description: Appropriate Behavior: Patient Behavior: Appropriate Speech Pattern: Appropriate Vitals/I&O/Wt Last Vital Signs Temp 98.0 F 03/15/21 06:00 Pulse 82 03/15/21 06:00 Resp 15 03/15/21 06:00 BP 114/82 03/15/21 06:00 Pulse Ox 98 03/15/21 06:00 Weight last 48 hrs Weight 142.882 kg Data NPU : 03/11/21 18:28 03/11/21 18:28 A&P Assessment and plan (1) Autism: Status: Chronic (2) OCD (obsessive compulsive disorder): Status: Chronic Qualifiers: Obsessive-compulsive disorder type: mixed obsessional thoughts and acts Qualified Code(s): F42.2 - Mixed obsessional thoughts and acts (3) Hypothyroid: Status: Chronic Qualifiers: Hypothyroidism type: unspecified Qualified Code(s): E03.9 - Hypothyroidism, unspecified (4) Pre-diabetes: Status: Chronic (5) Seasonal allergic rhinitis: Status: Chronic Qualifiers: Allergic rhinitis trigger: unspecified Qualified Code(s): J30.2 - Other seasonal allergic rhinitis (6) ADHD: Status: Chronic Qualifiers: Attention deficit-hyperactivity disorder type: unspecified Qualified Code(s): F90.9 - Attention-deficit hyperactivity disorder, unspecified type (7) Enuresis: Status: Chronic (8) Slow transit constipation: Status: Chronic (9) Obesity, Class II, BMI 35-39.9: Status: Chronic (10) Suicidal ideation: Status: Acute (11) Depression: Status: Acute Qualifiers: Depression Type: major depressive disorder Major depression recurrence: recurrent Active/Remission status: currently active Major depression episode severity: severe Psychotic features: without psychotic features Qualified Code(s): F33.2 - Major depressive disorder, recurrent severe without psychotic features Additional A&P Information This is a 21 year old male who has relatively frequent suicidal ideations and hospitalizations. He says that he has been more depressed for the last 3 months and has had recent suicidal ideations and an attempt to hang himself with a basketball hoop Plan: 1. Continue home medication. With the exception of risperidone to 7.5 mg at bedtime and lithium carbonate to 300 mg 3 times a day. 3. Encourage individual, group and milieu therapies. 4. Encourage sober living treatment after discharge at the highest level of care to which he is willing to commit. 5. We will monitor for safety for himself in the community prior to discharge. Involuntary Hold Information 96 Hour Hold: 96 Hour Involuntary Admission: No Attestations NPU Medical Necessity Statement*: Inpatient hospitalization is medically necessary and the clinically appropriate intervention at this time. We will initiate medications and make changes as indicated. 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 Diagnoses Autism F84.0 OCD (obsessive compulsive disorder) F42.2 Obsessive-compulsive disorder type: mixed obsessional thoughts and acts Hypothyroid E03.9 Hypothyroidism type: unspecified Pre-diabetes R73.03 Seasonal allergic rhinitis J30.2 Allergic rhinitis trigger: unspecified ADHD F90.9 Attention deficit-hyperactivity disorder type: unspecified Enuresis R32 Slow transit constipation K59.01 Obesity, Class II, BMI 35-39.9 E66.9 Suicidal ideation R45.851 Depression F33.2 Depression Type: major depressive disorder Major depression recurrence: recurrent Active/Remission status: currently active Major depression episode severity: severe Psychotic features: without psychotic features
[2021-03-15] MEDS: guanfacine 1 mg Tablet 2 MG PO ×2 (09:18→17:10)
[2021-03-15] MEDS: naltrexone hcl 50 mg Tablet PO (09:19)
[2021-03-15] MEDS: levothyroxine 50 mcg Tablet PO (09:19)
[2021-03-15] MEDS: atomoxetine 40 mg Capsule 80 MG PO (09:19)
[2021-03-15] MEDS: polyethylene glycol 3350 Pkt 17 gm PO (09:19)
[2021-03-15] MEDS: cetirizine 10 mg Tablet PO (09:19)
[2021-03-15] MEDS: lithium carbonate 300 mg Capsule PO ×3 (09:19→19:32)
[2021-03-15] MEDS: PARoxetine 20 mg Tablet 40 MG PO ×2 (09:19→17:10)
[2021-03-15] MEDS: acetaminophen 325 mg Tablet 650 MG PO ×2 (13:00→19:34)
[2021-03-15 14:00] VITALS: BP 142/93; PULSE 97; RESP 20; TEMP 36.6; O2SAT 95
[2021-03-15] MEDS: risperiDONE 2 mg Tablet 6 MG PO (19:32)
[2021-03-15] MEDS: risperiDONE 1 mg Tablet PO (19:32)
[2021-03-15] MEDS: risperiDONE 0.25 mg Tablet 0.5 MG PO (19:32)
[2021-03-15 19:45] VITALS: BP 114/75; PULSE 118; RESP 17; O2SAT 97
[2021-03-16 06:00] VITALS: BP 132/78; PULSE 110; RESP 16; TEMP 36.8; O2SAT 99
[2021-03-16] MEDS: cetirizine 10 mg Tablet PO (08:32)
[2021-03-16] MEDS: lithium carbonate 300 mg Capsule PO ×2 (08:32→14:10)
[2021-03-16] MEDS: polyethylene glycol 3350 Pkt 17 gm PO (08:32)
[2021-03-16] MEDS: PARoxetine 20 mg Tablet 40 MG PO (08:32)
[2021-03-16] MEDS: atomoxetine 40 mg Capsule 80 MG PO (08:32)
[2021-03-16] MEDS: guanfacine 1 mg Tablet 2 MG PO (08:32)
[2021-03-16] MEDS: naltrexone hcl 50 mg Tablet PO (08:32)
[2021-03-16] MEDS: levothyroxine 50 mcg Tablet PO (08:33)
--- NOTE | 2021-03-16 11:00 | NPU.GN ---
[facility] Topic: Ice Breakers General Mood of Group: Jaylon did attend and participate in group today. He was social, hygiene was ok, and seems mentally stable.
--- NOTE | 2021-03-16 12:06 | P.NPUDS_ITS ---
Diagnoses at Discharge Discharge Diagnosis (1) Autism: Status: Chronic (2) OCD (obsessive compulsive disorder): Status: Chronic Qualifiers: Obsessive-compulsive disorder type: mixed obsessional thoughts and acts Qualified Code(s): F42.2 - Mixed obsessional thoughts and acts (3) Hypothyroid: Status: Chronic Qualifiers: Hypothyroidism type: unspecified Qualified Code(s): E03.9 - Hypothyroidism, unspecified (4) Pre-diabetes: Status: Chronic (5) Seasonal allergic rhinitis: Status: Chronic Qualifiers: Allergic rhinitis trigger: unspecified Qualified Code(s): J30.2 - Other seasonal allergic rhinitis (6) ADHD: Status: Chronic Qualifiers: Attention deficit-hyperactivity disorder type: unspecified Qualified Code(s): F90.9 - Attention-deficit hyperactivity disorder, unspecified type (7) Enuresis: Status: Chronic (8) Slow transit constipation: Status: Chronic (9) Obesity, Class II, BMI 35-39.9: Status: Chronic (10) Suicidal ideation: Status: Acute (11) Depression: Status: Acute Qualifiers: Active/Remission status: currently active Depression Type: major depressive disorder Major depression episode severity: severe Major depression recurrence: recurrent Psychotic features: without psychotic features Qualified Code(s): F33.2 - Major depressive disorder, recurrent severe without psychotic features Reason for Visit Reason for Visit: SI Brief History: HPI NPU History of Present Illness Nick Sanders is a 21 year old male who presented to the emergency room after a suicide attempt with the following report: HPI - Psych General: Chief Complaint: Psychiatric Symptoms Stated Complaint: SI Time Seen by Provider: 03/11/21 16:23 History of Present Illness: HPI Narrative: 21-year-old male lives at an [facility].. Patient relates having depression and suicidal thoughts he tried to strangle himself using a basketball hoop earlier today. He has been sleeping most of the time eating and isolating himself according to the staff members here with him. He has been admitted for same in the past. MD complaint: suicidal ideation Onset (ago): minute(s) Duration: constant History of same: Yes Relieving factors: none Exacerbating factors: none Associated psychiatric symptoms: none Associated symptoms: Reports no associated symptoms Treatments prior to arrival: none If self harm: admits thoughts of self harm, has plan, has acted on plan and self-inflicted trauma Details of plan: Patient attempted to strangle himself with a basketball hoop Prescriptions: No Action paroxetine HCl 40 mg tablet 40 mg PO BID RF: 0 naltrexone 50 mg tablet 50 mg PO DAILY RF: 0 melatonin [Melatin] 3 mg tablet 3 mg PO DAILY RF: 0 ibuprofen 600 mg tablet 600 mg PO Q6H PRN (Reason: pain) Qty: 90 RF: 5 acetaminophen 325 mg tablet 325 mg PO Q6H PRN (Reason: fever over 100 or pain) Qty: 30 RF: 5 cetirizine 10 mg tablet 10 mg PO DAILY Qty: 30 RF: 5 polyethylene glycol 3350 [Miralax] 17 gram/dose powder 17 g PO DAILY Qty: 510 RF: 2 risperidone 3 mg tablet 3 mg PO .AM RF: 0 risperidone 3 mg tablet 3 mg PO BID RF: 0 levothyroxine 25 mcg tablet 25 mcg PO DAILY Qty: 30 RF: 5 guanfacine 4 mg tablet extended release 24 hr 4 mg PO DAILY Qty: 30 RF: 2 atomoxetine 80 mg capsule 80 mg PO DAILY Qty: 30 RF: 2 desmopressin 0.2 mg tablet 0.2 mg PO .at bedtime Qty: 30 RF: 2 PFSH ED PFSH: Medical History ADHD Anxiety and depression Autism Enuresis Hypothyroid Obesity, Class II, BMI 35-39.9 OCD (obsessive compulsive disorder) Pre-diabetes Seasonal allergic rhinitis He was admitted to the neuropsychiatry unit for definitive treatment of these issues. He says that he has been down for the last few months. He said he went and was with family at [facility] and did well. He saw his psychiatrist about 2 or 3 weeks ago and was doing relatively well. He decreased his risperidone from 1.5 in the morning and 6 mg at bedtime to only 6 mg at bedtime. That because he was tired during the day. It seems that he has been worse since that time. He does feel a little bit less tired during the day but he still has poor motivation and energy and just lays on the bed or couch all day long. He tried to hang himself with a basketball hoop in the last couple of days. He also has been having thoughts of running into traffic on a walk that he had yesterday. He says that he has been on these medications for some time. His guardian says that he has been stable on these medications for about 1.5 years and has been doing well. She is hoping that this is just a temporary thing. He spent some time with family at [facility] but will be alone at [place] and she thinks that might be causing him to be more down. Did agree with the lithium although she had some concerns. She also agreed with the increase in risperidone to 7.5 mg daily. He has been in state custody since he was 6 years old. His mother could not handle her 5 children on her own. His father left when he was 2-year-old. He has had the same guardian for the last 6 years. His mother is in [place] now. She a tod who is in trouble with the law in [place]. He says that he was diagnosed as prediabetes a few years ago. He said that his weight has been stable since then but he has gotten taller so he is less obese. He says that he does have some obsessive-compulsive symptoms. Sometimes if he is something out of place he has to fix it. He does count things sometimes. He does not have rituals that he has to go through. Hospital Course Hospital Course He slowly acclimated to the individual, group and milieu therapies provided. His risperidone was moved to bedtime because he was somewhat sedated during the day. He was started on lithium 300 mg 3 times a day. He tolerated these doses and showed steady improvement during his stay. He was able to contract for safety outside hospital prior to discharge. During the hospitalization, patient had routine laboratory studies which were within normal limits except for few outliers. Additionally there was a general medical evaluation which was also within normal limits and revealed no new acute processes. Discharge Summary: At the time of discharge, lethality was denied. Mood and anxiety were well managed. Patient endorsed a plan to follow-up with the aftercare recommendations of the treatment team. Patient was evaluated and deemed to be absent credible lethality, and had achieved the maximum benefit from an inpatient hospitalization, so was discharged. He felt that the lithium had been helpful. I would recommend discontinuing it if he is not better than normal in 3 or 4 weeks. Involuntary Hold Information 96 Hour Hold: 96 Hour Involuntary Admission: No Mental Status Exam MSE Comments: This is an obese male of about the stated age in no acute distress. He is dressed in hospital scrubs and is only fairly groomed. His hair is unkempt. He was getting ready to go back to sleep after breakfast.. psychomotor activity is normal Speech is at a regular rate and rhythm, normal volume, good articulation, not pressured. Alert, oriented X2 Attention and concentration appear to be normal. Memory is intact Mood is depressed but better. Affect is is mildly dysphoric. Thought process is logical and goal-directed. Thought content: Denies auditory and visual hallucinations. No delusions or paranoia are noted. No current suicidal ideation, and no homicidal ideation. Fund of knowledge is limited. Insight and judgment appear to be fairly good. Impulse control is impaired as indicated by attempting to hang himself only. Cognition: Patient Appearance: Disheveled/Poor Hygiene Level of Consciousness: Awake and Alert Patient Cognition Impaired: No Ability to Follow Directions: Good Patient Orientation (long list): Person and Name Comprehension Ability: Mild Impairment Hallucination Type: None Delusion Description: Not Present Thought Process: Appropriate Affect: Affect Description: Calm Behavior: Patient Behavior: Cooperative Speech Pattern: Clear Discharge Data Vitals: Last Vital Signs Temp 97.8 F 03/15/21 14:00 Pulse 118 H 03/15/21 19:45 Resp 17 03/15/21 19:45 BP 114/75 03/15/21 19:45 Pulse Ox 97 03/15/21 19:45 Discharge Plan Discharge Patient Disposition: Home Condition: Stable Prescriptions: New risperidone 2 mg Tablet 8 mg PO BEDTIME 30 Days Qty: 120 RF: 0 lithium carbonate 300 mg Capsule 300 mg PO TID 30 Days Qty: 90 RF: 0 levothyroxine 50 mcg Tablet 50 mcg PO DAILY 30 Days Qty: 30 RF: 0 Continued paroxetine HCl 40 mg tablet 40 mg PO BID RF: 0 naltrexone 50 mg tablet 50 mg PO DAILY RF: 0 melatonin [Melatin] 3 mg tablet 3 mg PO DAILY RF: 0 ibuprofen 600 mg tablet 600 mg PO Q6H PRN (Reason: pain) Qty: 90 RF: 5 acetaminophen 325 mg tablet 325 mg PO Q6H PRN (Reason: fever over 100 or pain) Qty: 30 RF: 5 cetirizine 10 mg tablet 10 mg PO DAILY Qty: 30 RF: 5 polyethylene glycol 3350 [Miralax] 17 gram/dose powder 17 g PO DAILY Qty: 510 RF: 2 guanfacine 4 mg tablet extended release 24 hr 4 mg PO DAILY Qty: 30 RF: 2 atomoxetine 80 mg capsule 80 mg PO DAILY Qty: 30 RF: 2 desmopressin 0.2 mg tablet 0.2 mg PO .at bedtime Qty: 30 RF: 2 Discontinued risperidone 3 mg tablet 6 mg PO BEDTIME RF: 0 levothyroxine 25 mcg tablet 25 mcg PO DAILY Qty: 30 RF: 5 Discharge Orders: Discharge Order (Routine); Ordered 03/16/21 Ordered By: Fransico Pennington Referrals: Blanca Petit FNP [Primary Care Provider] - Discharge Diet: Regular Discharge Activity: Resume usual activity Patient Instructions: Opioid Safety Discharge Attestations NPU Time Spent in Discharge Care*: less than 30 min Specific Discharge Activities: Specific discharge activities: educating patient, discussing with counter caser/social workers/dc planners, documenting/other paperwork and evaluating patient/reviewing data Coding Level of Care Code Acute [facility] DC note Diagnoses Autism F84.0 OCD (obsessive compulsive disorder) F42.2 Obsessive-compulsive disorder type: mixed obsessional thoughts and acts Hypothyroid E03.9 Hypothyroidism type: unspecified Pre-diabetes R73.03 Seasonal allergic rhinitis J30.2 Allergic rhinitis trigger: unspecified ADHD F90.9 Attention deficit-hyperactivity disorder type: unspecified Enuresis R32 Slow transit constipation K59.01 Obesity, Class II, BMI 35-39.9 E66.9 Suicidal ideation R45.851 Depression F33.2 Active/Remission status: currently active Depression Type: major depressive disorder Major depression episode severity: severe Major depression recurrence: recurrent Psychotic features: without psychotic features
[2021-03-16 12:51] VITALS: BP 132/78; PULSE 78; RESP 16; TEMP 36.8; O2SAT 99
[2021-03-16 13:40] VITALS: BP 132/78; PULSE 78; RESP 16; TEMP 36.8; O2SAT 99
== END 2021-03-16 14:26 | disposition home or self-care (01) | DRG 885 ==
LOC: ER 19:17 → NP 20:12
PROVIDERS: Family Medicine; Admitting Provider Psychiatry & Neurology Psychiatry; Emergency Provider Emergency Medicine; PCP Nurse Practitioner Family; Visit Provider Psychiatry & Neurology Psychiatry
DX: F33.2 Major depressive disorder, recurrent severe without psychotic features (principal); R45.851 Suicidal ideations; Z68.41 Body mass index [BMI] 40.0-44.9, adult; T14.91XA Suicide attempt, initial encounter; X83.8XXA Intentional self-harm by other specified means, initial encounter; F90.9 Attention-deficit hyperactivity disorder, unspecified type; F41.9 Anxiety disorder, unspecified; F84.0 Autistic disorder; E03.9 Hypothyroidism, unspecified; E66.9 Obesity, unspecified; F42.2 Mixed obsessional thoughts and acts; R73.03 Prediabetes; K59.01 Slow transit constipation
CPT/HCPCS: 80053; 80306; 80307; 84443; 85025; 97150; 97165; 99285

== ENCOUNTER 2023-12-09 17:41 | Emergency (ER) | payer MEDICAID, SELFPAY ==
[2023-12-09 17:43] VITALS: BP 109/74; PULSE 73; RESP 18; TEMP 36.7; O2SAT 98; BMI 34.3
--- NOTE | 2023-12-09 17:44 | XRR_ITS ---
PROCEDURE INFORMATION: Exam: XR Abdomen Exam date and time: 12/09/2023 6:31 PM Age: 23 years old Clinical indication: Constipation TECHNIQUE: Imaging protocol: Radiologic exam of the abdomen. Views: Frontal supine view of the abdomen. 1 View. COMPARISON: No relevant prior studies available. FINDINGS: Gastrointestinal tract: Nonspecific bowel-gas pattern without evidence of large or small bowel obstruction. [id number] retained colonic stool compatible with history of constipation. Bones/joints: Unremarkable. XR/XR KUB [id number] IMPRESSION: No plain film evidence of acute intra-abdominal or pelvic process.
--- NOTE | 2023-12-09 18:47 | W.ED.ABDPA2 ---
HPI - Abdominal Pain General: Chief Complaint: Abdominal Pain Stated Complaint: constipation Time Seen by Provider: 12/09/23 18:09 Source: patient Mode of arrival: ambulatory Limitations: no limitations History of Present Illness: 23-year-old male with a history of constipation past states he has not had a bowel movement in 8 days he is not taking MiraLAX with no success. Has had some abdominal fullness and pain he rates a 2 out of 10 denies any vomiting denies any fevers Associated Symptoms: Reports constipation; Denies chills, diarrhea, dysuria, fever(s), nausea and vomiting Related Data Home Medications Medication Instructions Recorded Confirmed naltrexone 50 mg tablet 50 mg PO DAILY 12/13/19 03/11/21 paroxetine HCl 40 mg tablet 40 mg PO BID 12/13/19 03/11/21 melatonin 3 mg tablet (Melatin) 3 mg PO DAILY 08/12/20 03/11/21 Previous Rx's Medication Instructions Recorded atomoxetine 80 mg capsule 80 mg PO DAILY #30 caps 01/10/20 guanfacine 4 mg tablet,extended 4 mg PO DAILY #30 tabs 01/10/20 release 24 hr acetaminophen 325 mg tablet 325 mg PO Q6H PRN fever over 100 08/12/20 or pain #30 tabs cetirizine 10 mg tablet 10 mg PO DAILY #30 tabs 08/12/20 ibuprofen 600 mg tablet 600 mg PO Q6H PRN pain #90 tabs 08/12/20 polyethylene glycol 3350 17 17 g PO DAILY #510 grams 10/17/20 gram/dose oral powder (Miralax) desmopressin 0.2 mg tablet 0.2 mg PO .at bedtime #30 tabs 12/09/20 Allergies Allergy/AdvReac Type Severity Reaction Status Date / Time No Known Allergies Allergy Unverified 12/09/23 17:46 Review of Systems Const: Denies: fever(s), chills, body aches or change in appetite ENMT: Denies: throat pain or dental pain Card: Denies: chest pain Resp: Denies: dyspnea GI: Reports: abdominal pain and constipation; Denies: nausea, vomiting or diarrhea : Denies: dysuria Musc: Denies: neck pain or back pain Skin/Breast: Denies: rash Neuro: Denies: headache(s) PFSH ED PFSH: Medical History Obesity, Class II, BMI 35-39.9 Enuresis Seasonal allergic rhinitis Anxiety and depression Autism OCD (obsessive compulsive disorder) ADHD Hypothyroid Pre-diabetes Surgical History No history of previous surgery Family History Mother Seizure Social History Smoking and tobacco/nicotine status: never used tobacco/nicotine Second hand smoke exposure: No Alcohol intake: never Substance/Drug Use: never Adopted: No Caregiver/support person: Yes Lives independently: No Housing: Apartment Marital status: Single Number of children: 0 Highest education level completed: High School Graduate service: No Current occupational status: disabled Pets and animals: No Do you think of yourself as: Straight/Heterosexual Current gender identity: Male Special amor needs: No Physical Exam Const: COMMON NORMALS: no acute distress, patient oriented x3 and healthy appearing HENMT: COMMON NORMALS: normocephalic and atraumatic HEAD & SCALP: normocephalic and atraumatic Eye: COMMON NORMALS: conjunctivae normal CONJUNCTIVA: Yes conjunctivae normal Neck/C-Spine: COMMON NORMALS: full ROM and supple Chest: COMMONS NORMALS: normal inspection of the chest Resp: COMMON NORMALS: normal respiratory effort Cardio: COMMON NORMALS: regular rate RATE: regular rate GI: COMMON NORMALS: Normal to inspection, nondistended, normoactive bowel sounds present, Soft to palpation, non-tender and no masses PALPATION: Yes Soft to palpation Extremity: COMMON NORMALS: normal to inspection and full ROM Neuro: COMMON NORMALS: patient oriented x3, moves all extremities and no focal motor deficits Psych: COMMON NORMALS: mental status grossly normal, Normal thought process present and cooperative THOUGHT PROCESS: Normal thought process present Skin: COMMON NORMALS: no rashes or lesions noted and no wounds GENERAL SKIN EXAM: no rashes or lesions noted Course Vital Signs: Vital signs: Vital Signs Temperature 98.1 F 12/09/23 17:43 Pulse Rate 73 12/09/23 17:43 Respiratory Rate 18 12/09/23 17:43 Blood Pressure 109/74 12/09/23 17:43 Pulse Oximetry 98 12/09/23 17:43 Oxygen Delivery Me thod Room Air 12/09/23 17:43 MDM - Abdominal Pain Medical Decision Making Patient presents with constipation he did have a bowel movement here dispensing lactulose to take tomorrow if he is still constipated follow-up with PCP return if worsening. Medical Records I reviewed the patient's medical records. Lab Data Labs/Radiology: Radiology Impressions KUB X-Ray 12/09/23 17:44 IMPRESSION: No plain film evidence of acute intra-abdominal or pelvic process. All radiology interpretation(s) finalized by discharge Discharge Plan Discharge Patient Disposition: Home Clinical Impression: Constipation Condition: Stable Prescriptions: No Action paroxetine HCl 40 mg tablet 40 mg PO BID naltrexone 50 mg tablet 50 mg PO DAILY melatonin [Melatin] 3 mg tablet 3 mg PO DAILY ibuprofen 600 mg tablet 600 mg PO Q6H PRN (Reason: pain) Qty: 90 5RF acetaminophen 325 mg tablet 325 mg PO Q6H PRN (Reason: fever over 100 or pain) Qty: 30 5RF cetirizine 10 mg tablet 10 mg PO DAILY Qty: 30 5RF polyethylene glycol 3350 [Miralax] 17 gram/dose powder 17 g PO DAILY Qty: 510 2RF guanfacine 4 mg tablet extended release 24 hr 4 mg PO DAILY Qty: 30 2RF atomoxetine 80 mg capsule 80 mg PO DAILY Qty: 30 2RF desmopressin 0.2 mg tablet 0.2 mg PO .at bedtime Qty: 30 2RF Discharge Orders: Discharge ED (Routine); Ordered 12/09/23 Ordered By: Leatha Junior Referrals: Blanca Petit FNP [Primary Care Provider] - 4-7 days Discharge Diet: Advance as tolerated Discharge Activity: Resume usual activity Patient Instructions: Constipation (ED) Coding Level of Care Code ED Legal Support Assistant for Lefty Arce
--- NOTE | 2023-12-09 19:21 | PC.NURSE ---
Delay in medication administration due to awaiting pharmacy to verify med.
[2023-12-09] MEDS: lactulose oral liq 20 gm/30 mL UDC 30 GM PO ×2 (19:43→21:16)
[2023-12-09] MEDS: glycerin adult supp 1 EACH PR (20:53)
--- NOTE | 2023-12-09 21:16 | PC.NURSE ---
Lactulose sent home with patient and caregiver per instruction of Dr Junior. Witnessed by Angeli VASQUEZ.
[2023-12-09 21:22] VITALS: BP 106/73; PULSE 73; O2SAT 99
[2023-12-09 21:23] VITALS: BP 106/73; PULSE 73; O2SAT 99
== END 2023-12-09 21:12 | disposition home or self-care (01) ==
PROVIDERS: Emergency Provider Emergency Medicine; PCP Nurse Practitioner Family
DX: K59.00 Constipation, unspecified (principal); F84.0 Autistic disorder
CPT/HCPCS: 74018; 99283